=== PATIENT | female | born 1980 | race Caucasian/White ===

== ENCOUNTER 2017-10-03 12:07 | Emergency (ER) | payer MEDICARE, MEDICAID ==
[~2017-10-03] VITALS: Ht 157.5 cm; Wt 59.0 kg
[2017-10-03] MEDS ORDERED: SODIUM CHLORIDE 0.9% 1,000 ML IVB ONE (12:23)
[2017-10-03 12:26] VITALS: BP 108/70
== END 2017-10-03 14:05 | disposition left against medical advice (07) ==
LOC: ER 12:07
DX: R56.9 Unspecified convulsions (principal); E11.9 Type 2 diabetes mellitus without complications
CPT/HCPCS: 94761

== ENCOUNTER 2018-01-07 11:55 | Inpatient (IN) | payer MEDICARE, MEDICAID ==
[2018-01-07] VITALS (17 sets, daily range): BP systolic 96–155; BP diastolic 59–107
[~2018-01-07] VITALS: Ht 165.1 cm; Wt 66.0 kg
[2018-01-07] MEDS ORDERED: cefTRIAXone 1GM/10ml IVPUSH 10 ML IV ONE (12:15)
[2018-01-07] MEDS ORDERED: CLINDAMYCIN 600MG IV 50 ML IV ONE ×2 (12:15→21:34)
[2018-01-07 12:40] LABS: Basophils # (auto) 0.1 uL; Eosinophils # (auto) 0.2 uL; Hemoglobin 12.5 g/dL (12.2-16.2); Monocytes # (auto) 0.7 uL; Monocytes % (auto) 6.8 % (0.0-12.0)
[2018-01-07 12:43] LABS: Basophils % (auto) 0.5 % (0.0-2.0); Eosinophils % (auto) 2.1 % (0.0-7.0); Lymphocytes # (auto) 2.8 uL; Lymphocytes % (auto) 29.2 % (10.0-50.0); Mean Corpuscular Volume 84.5 fL (80.0-100.0); Neutrophils # (auto) 5.9 uL; Neutrophils % (auto) 61.4 % (37.0-80.0); Nucleated Red Blood Cells % 0.2 %; Platelet Count (auto) 341 10^3/uL (140-450); Red Blood Cells 4.61 10^6/uL (4.0-5.20); Red Cell Distribution Width 16.7 % (11.8-14.3); White Blood Cell 9.7 10^3/uL (4.4-10.8)
[2018-01-07 13:01] LABS: Alanine Aminotransferase 92 U/L (13-56); Albumin 2.9 g/dL (3.4-5.0); Anion Gap 25 (5-15); Aspartate Aminotransferase 138 U/L (15-37); BUN/Creatinine Ratio 11.9; Blood Urea Nitrogen 12 mg/dL (7-18); Calcium 7.6 mg/dL (8.5-10.1); Carbon Dioxide 16 mmol/L (21-32); Chloride 105 mmol/L (98-107); GFR African American 78 mL/min; GFR Non-African American 65 mL/min; Glucose 285 mg/dL (74-106); Sodium 146 mmol/L (136-145)
[2018-01-07 13:02] LABS: INR 1.01 (0.9-1.15); Partial Thromboplastin Time 28.7 sec (23.78-33.04); Prothrombin Time 10.8 sec (9.27-12.13)
[2018-01-07] MEDS ORDERED: MIDAZOLAM DRIP 50 mg/50mL 50 ML IV SCH (13:04)
[2018-01-07 13:05] LABS: Alkaline Phosphatase 116 U/L (45-117); Bilirubin, Total 0.3 mg/dL (0.2-1.0); Total Protein 6.4 g/dL (6.4-8.2)
[2018-01-07] MEDS ORDERED: MIDAZOLAM DRIP 50 mg/50mL 50 ML IV ONE (13:05)
[2018-01-07 13:08] LABS: Potassium 2.9 mmol/L (3.5-5.1)
[2018-01-07 13:23] LABS: Urine Bacteria FEW /hpf (None Seen); Urine Blood TRACE /uL (Negative); Urine Mucus FEW (None Seen); Urine Specific Gravity 1.017 (1.001-1.035); Urine WBC 1 /hpf (0 - 5)
[2018-01-07 13:27] LABS: Alcohol, Urine < 3.0 mg/dL (0-5); Amphetamine Screen, Urine NEGATIVE (NEGATIVE); Barbiturate Scree,Urine NEGATIVE (NEGATIVE); Benzodiazephine Screen, Urine NEGATIVE (NEGATIVE); Cannabinoid Screen, Urine NEGATIVE (NEGATIVE); Cocaine Screen, Urine NEGATIVE (NEGATIVE); Opiate Scree,Urine NEGATIVE (NEGATIVE); Phencyclidine Screen, Urine NEGATIVE (NEGATIVE)
[2018-01-07] MEDS ORDERED: POTASSIUM CHL 20MEQ/100ML 100 ML IV ONE (13:30)
[2018-01-07 13:41] LABS: Lactic Acid w/Reflex 8.6 mmol/L (0.4-2.0)
[2018-01-07] MEDS ORDERED: SODIUM CHLORIDE 0.9% 1,000 ML IV ONE ×2 (13:45→14:45)
[2018-01-07] MEDS ORDERED: NITROGLYCERIN 0.4 MG SL TAB SL PRN (15:00)
[2018-01-07] MEDS ORDERED: MORPHINE SULF INJ 2 MG/ML SYRINGE 1ML IV PRN (15:00)
[2018-01-07] MEDS ORDERED: DEXTROSE (50%) 50ML SYRG IV PRN (15:00)
[2018-01-07] MEDS ORDERED: LORazepam 2MG/ML-1ML VIAL ONE ×2 (15:03→17:46)
[2018-01-07] MEDS: LORazepam 2MG/ML-1ML VIAL IV PRN ×3 (15:09→21:39)
[2018-01-07] MEDS: POTASSIUM CHL 20MEQ/100ML 100 ML IV SCH ×2 (15:38→16:45)
[2018-01-07] MEDS: PANTOPRAZOLE 40 MG/10 ML VIAL IV SCH (15:38)
[2018-01-07] MEDS ORDERED: DIAZEPAM 5 MG/ML 2ML SYRG IV ONE ×2 (16:15→17:00)
[2018-01-07] MEDS ORDERED: LEVETIRACETAM INJ 1,000 MG in D5W 5% 100 ML IV ONE (16:15)
[2018-01-07] MEDS ORDERED: SUCCINYLCHOLINE CHLORIDE 20 MG/ML 10ML VIAL IV ONE (16:46)
[2018-01-07] MEDS ORDERED: LORazepam 2MG/ML-1ML VIAL IV ONE ×2 (17:00→17:45)
[2018-01-07] MEDS: SODIUM CHLORIDE 0.9% 1,000 ML IV SCH (17:34)
[2018-01-07] MEDS ORDERED: methylPREDNISolone SOD SUCC 125 MG/2 ML VL IV ONE (17:45)
[2018-01-07] MEDS ORDERED: diphenhdrAMINE HCL 50 MG/1 ML VL IV ONE (17:45)
[2018-01-07] MEDS ORDERED: ACETAMINOPHEN 650 MG RECT SUPP PR ONE (18:00)
[2018-01-07] MEDS ORDERED: PHENYTOIN IV DILANTIN 1,000 MG in SODIUM CHL 0.9% 250 ML IV ONE (18:15)
[2018-01-07] MEDS: MIDAZOLAM DRIP 50 mg/50mL 50 ML IV SCH ×2 (18:41→21:40)
[2018-01-07] MEDS: ACCU-CHEK COMFORT CURVE STRIP VI SCH (18:49)
[2018-01-07] MEDS: InsuLIN REG 1unit/0.01ml Soln (100units/ml) SC SCH (18:50)
[2018-01-07] MEDS ORDERED: CLINDAMYCIN 600 MG/4 ML VL IM SCH (22:00)
[2018-01-07] MEDS: CLINDAMYCIN 600MG IV 50 ML IV SCH (22:09)
[2018-01-07] MEDS ORDERED: PROPOFOL 100 ML IV ONE (22:14)
[2018-01-07] MEDS: PROPOFOL 100 ML IV SCH (22:32)
[2018-01-07] MEDS ORDERED: FER325T PO (23:17)
[2018-01-07] MEDS ORDERED: HAL5T PO (23:21)
[2018-01-07] MEDS ORDERED: BENZ1TAB2 PO (23:23)
[2018-01-07] MEDS ORDERED: PAR20T PO (23:25)
[2018-01-07] MEDS ORDERED: QUET50TA PO (23:28)
[2018-01-07] MEDS ORDERED: METF1000 PO (23:29)
[2018-01-07] MEDS ORDERED: GLIP-115 PO (23:30)
[2018-01-07] MEDS ORDERED: PROG100C4 IM (23:33)
[2018-01-08] VITALS (102 sets, daily range): BP systolic 84–129; BP diastolic 52–88
[2018-01-08] MEDS: ACCU-CHEK COMFORT CURVE STRIP VI SCH ×5 (00:07→23:51)
[2018-01-08] MEDS: InsuLIN REG 1unit/0.01ml Soln (100units/ml) SC SCH ×5 (00:07→23:51)
[2018-01-08] MEDS ORDERED: MEDR150I23 IM (01:06)
[2018-01-08] MEDS ORDERED: FERR220L PO (01:14)
[2018-01-08] MEDS: MIDAZOLAM DRIP 50 mg/50mL 50 ML IV SCH ×5 (02:03→23:49)
[2018-01-08 03:47] LABS: Basophils # (auto) 0 uL; Eosinophils # (auto) 0 uL; Hematocrit 33.1 % (36.0-46.0); Lymphocytes # (auto) 0.4 uL; Lymphocytes % (auto) 3.8 % (10.0-50.0); Mean Corpuscular Hgb Conc. 33.3 g/dL (32.0-36.0); Mean Corpuscular Volume 80.9 fL (80.0-100.0); Monocytes # (auto) 0.5 uL; Monocytes % (auto) 4.6 % (0.0-12.0); Neutrophils # (auto) 9.2 uL; Neutrophils % (auto) 91.6 % (37.0-80.0); Platelet Count (auto) 236 10^3/uL (140-450); Red Blood Cells 4.09 10^6/uL (4.0-5.20); Red Cell Distribution Width 16.8 % (11.8-14.3); White Blood Cell 10.1 10^3/uL (4.4-10.8)
[2018-01-08 03:57] LABS: Albumin 2.8 g/dL (3.4-5.0); BUN/Creatinine Ratio 10.5; Calcium 7.3 mg/dL (8.5-10.1); Potassium 3.3 mmol/L (3.5-5.1)
[2018-01-08 03:59] LABS: Bilirubin, Total 0.4 mg/dL (0.2-1.0)
[2018-01-08] MEDS: PROPOFOL 100 ML IV SCH ×2 (03:59→20:13)
[2018-01-08] MEDS: SODIUM CHLORIDE 0.9% 1,000 ML IV SCH (04:20)
[2018-01-08] MEDS: CLINDAMYCIN 600MG IV 50 ML IV SCH ×3 (06:02→21:57)
[2018-01-08] MEDS: PANTOPRAZOLE 40 MG/10 ML VIAL IV SCH (09:27)
[2018-01-08] MEDS: cefTRIAXone 1GM/10ml IVPUSH 10 ML IV SCH (09:27)
[2018-01-08] MEDS ORDERED: SODIUM BICARBONATE 8.4% INJ 50ML SYRINGE IV ONE (13:46)
[2018-01-08] MEDS ORDERED: POTASSIUM EFFERVESENT TAB 25 MEQ GT ONE (14:30)
[2018-01-08] MEDS ORDERED: ENOXAPARIN SOD 40 MG/0.4 ML SYRINGE SC ONE (14:30)
[2018-01-08] MEDS ORDERED: Jevity 1.2 Cal/Fiber 1 Liter GT SCH (14:30)
[2018-01-09] VITALS (104 sets, daily range): BP systolic 94–144; BP diastolic 57–94
[2018-01-09] MEDS: MIDAZOLAM DRIP 50 mg/50mL 50 ML IV SCH ×4 (03:17→19:04)
[2018-01-09 04:10] LABS: Basophils # (auto) 0 uL; Eosinophils # (auto) 0 uL; Lymphocytes # (auto) 0.8 uL; Mean Corpuscular Hemoglobin 26.5 pg (28.0-32.0); Mean Corpuscular Hgb Conc. 31.7 g/dL (32.0-36.0); Monocytes # (auto) 1.2 uL; Monocytes % (auto) 10.2 % (0.0-12.0)
[2018-01-09 04:12] LABS: Basophils % (auto) 0.1 % (0.0-2.0); Hematocrit 39.3 % (36.0-46.0); Hemoglobin 12.5 g/dL (12.2-16.2); Lymphocytes % (auto) 6.8 % (10.0-50.0); Mean Corpuscular Volume 83.5 fL (80.0-100.0); Neutrophils # (auto) 9.8 uL; Neutrophils % (auto) 82.9 % (37.0-80.0); Platelet Count (auto) 235 10^3/uL (140-450); Red Blood Cells 4.71 10^6/uL (4.0-5.20); White Blood Cell 11.8 10^3/uL (4.4-10.8)
[2018-01-09 04:21] LABS: Albumin 2.5 g/dL (3.4-5.0)
[2018-01-09 04:23] LABS: BUN/Creatinine Ratio 14.3
[2018-01-09 04:26] LABS: Bilirubin, Total 0.6 mg/dL (0.2-1.0); Total Protein 6.4 g/dL (6.4-8.2)
[2018-01-09] MEDS: InsuLIN REG 1unit/0.01ml Soln (100units/ml) SC SCH ×3 (05:18→18:01)
[2018-01-09] MEDS: ACCU-CHEK COMFORT CURVE STRIP VI SCH ×3 (05:18→18:01)
[2018-01-09] MEDS: CLINDAMYCIN 600MG IV 50 ML IV SCH ×3 (05:19→21:36)
[2018-01-09] MEDS: cefTRIAXone 1GM/10ml IVPUSH 10 ML IV SCH (09:02)
[2018-01-09] MEDS: ENOXAPARIN SOD 40 MG/0.4 ML SYRINGE SC SCH (10:16)
[2018-01-09] MEDS: PANTOPRAZOLE 40 MG/10 ML VIAL IV SCH (10:17)
[2018-01-09] MEDS: PROPOFOL 100 ML IV SCH (11:25)
[2018-01-10] VITALS (92 sets, daily range): BP systolic 102–166; BP diastolic 64–105
[2018-01-10] MEDS: MIDAZOLAM DRIP 50 mg/50mL 50 ML IV SCH ×3 (00:29→14:58)
[2018-01-10] MEDS: ACCU-CHEK COMFORT CURVE STRIP VI SCH ×3 (00:32→12:20)
[2018-01-10] MEDS: InsuLIN REG 1unit/0.01ml Soln (100units/ml) SC SCH ×3 (00:32→12:20)
[2018-01-10] MEDS: PROPOFOL 100 ML IV SCH ×2 (01:45→14:39)
[2018-01-10] MEDS: CLINDAMYCIN 600MG IV 50 ML IV SCH ×2 (06:00→13:07)
[2018-01-10] MEDS: cefTRIAXone 1GM/10ml IVPUSH 10 ML IV SCH (09:30)
[2018-01-10] MEDS: PANTOPRAZOLE 40 MG/10 ML VIAL IV SCH (09:30)
[2018-01-10] MEDS: ENOXAPARIN SOD 40 MG/0.4 ML SYRINGE SC SCH (09:31)
[2018-01-10] MEDS: LORazepam 2MG/ML-1ML VIAL IV PRN ×2 (22:15→22:22)
[2018-01-11] VITALS (47 sets, daily range): BP systolic 79–140; BP diastolic 30–90
[2018-01-11] MEDS: MORPHINE SULF INJ 2 MG/ML SYRINGE 1ML IV PRN ×2 (08:15→10:17)
[2018-01-11] MEDS: LORazepam 2MG/ML-1ML VIAL IV PRN ×4 (09:12→16:07)
[2018-01-11] MEDS: MORPHINE SULFATE 4 MG/ML SYR/VIAL IV PRN ×2 (14:31→18:19)
[2018-01-11] MEDS: PROPOFOL 100 ML IV SCH (14:39)
[2018-01-11] MEDS: MIDAZOLAM DRIP 50 mg/50mL 50 ML IV SCH (14:39)
== END 2018-01-11 19:57 | disposition expired | DRG 871 ==
LOC: EDUNIT# 11:55 → ER 11:55 → TELE 11:56 → ICU WEST 19:58 → TELE-CENTR 01-11 17:34
PROVIDERS: ADMIT Internal Medicine; ATTEND Internal Medicine
PROC: 5A1945Z Respiratory Ventilation, 24-96 Consecutive Hours (ICD-10-PCS; principal; 2018-01-07)
PROC: 0BH17EZ Insertion of Endotracheal Airway into Trachea, Via Natural or Artificial Opening (ICD-10-PCS; 2018-01-07)
PROC: 5A12012 Performance of Cardiac Output, Single, Manual (ICD-10-PCS; 2018-01-07)
DX: A41.01 Sepsis due to Methicillin susceptible Staphylococcus aureus (principal); J96.01 Acute respiratory failure with hypoxia; J69.0 Pneumonitis due to inhalation of food and vomit; K72.01 Acute and subacute hepatic failure with coma; G93.1 Anoxic brain damage, not elsewhere classified; E87.1 Hypo-osmolality and hyponatremia; E87.2 Acidosis; I46.9 Cardiac arrest, cause unspecified; E87.6 Hypokalemia; E11.9 Type 2 diabetes mellitus without complications; F79 Unspecified intellectual disabilities; H54.61 Unqualified visual loss, right eye, normal vision left eye; H57.04 Mydriasis; Z51.5 Encounter for palliative care; F41.9 Anxiety disorder, unspecified; Z79.4 Long term (current) use of insulin; Z88.0 Allergy status to penicillin
CPT/HCPCS: 36415; 36600; 70450; 71045; 71250; 74176; 80053; 80307; 81001; 82805; 82962; 83036; 83605; 84443; 84484; 84702; 85025; 85610; 85730; 87040; 87070; 87077; 87081; 87186; 87205; 92950; 93005; 94002; 94003; 95819; 96365; 96366; 96368; 96375; 99291; A6257; C9113; J0330; J0696; J1815; J2250; J2704; J3480; J3490; J7060